=== PATIENT | male | born 1955 | race Two or more races ===

== ENCOUNTER 2024-12-15 02:45 | Inpatient (IN) | payer OTHER ==
[~2024-12-15] VITALS: Ht 167.6 cm; Wt 81.8 kg
[2024-12-15 03:40] LABS: GLUCOMETER DEV NAME(LOC) ERT.6; GLUCOSE,POINT OF CARE 106 MG/DL (70-110)
[2024-12-15] MEDS ORDERED: ACETAMINOPHEN 325 MG TABLET PO PRN (04:00)
[2024-12-15 04:09] LABS: BASOPHILS % (AUTO) 0.6 % (0.0-2.0); EOSINOPHILS % (AUTO) 4.5 % (1.0-6.0); HEMOGLOBIN 12.1 g/dL (13.5-17.5); LYMPHOCYTES # (AUTO) 2.8 K/uL (1.0-4.8); LYMPHOCYTES % (AUTO) 38.4 % (22.0-44.0); MEAN CORPUSCULAR HEMOGLOBIN 31.8 pg (26.0-34.0); MEAN CORPUSCULAR HGB CONC 34.5 G/dL (31.0-37.0); MEAN CORPUSCULAR VOLUME 92 fL (80-100); MONOCYTES # (AUTO) 0.5 K/uL (0.1-1.0); MONOCYTES % (AUTO) 6.4 % (2.0-9.0); NEUTROPHILS # (AUTO) 3.7 K/uL (1.8-7.7); NEUTROPHILS % (AUTO) 50.1 % (40.0-70.0); PLATELET COUNT (AUTO) 170 K/uL (150-450); RED CELL DISTRIBUTION WIDTH 13.4 % (11.5-14.5); WHITE BLOOD COUNT (AUTO) 7.3 K/uL (4.5-11.0)
[2024-12-15 04:33] LABS: ANION GAP 8 mmol/L (8-16); CALCIUM, TOTAL 9.8 mg/dL (8.8-10.5); CARBON DIOXIDE 27 mmol/L (22-29); CHLORIDE 106 mmol/L (98-107); CREATININE 1.69 mg/dL (0.60-1.30); GLOMERULAR FILTR. RATE CALC 40 mL/min (>60); GLUCOSE,RANDOM 111 mg/dL (70-110); POTASSIUM 4.4 mmol/L (3.5-5.1); SODIUM SERUM 141 mmol/L (136-145); UREA NITROGEN, BLOOD 26 mg/dL (7-18)
[2024-12-15 04:42] LABS: ALANINE AMINOTRANSFERASE 21 U/L (12-78); ALBUMIN 3.5 g/dL (3.4-5.0); ALKALINE PHOSPHATASE 101 U/L (46-116); ASPARTATE AMINOTRANSFERASE 26 U/L (15-37); BILIRUBIN,TOTAL 0.8 mg/dL (0.1-1.0); CREATINE KINASE, TOTAL ONLY 20 U/L (39-308); TROPONIN I-HIGH SENSITIVITY 5 ng/L (<76)
[2024-12-15 04:44] LABS: ALCOHOL, BLOOD (SERUM) < 3 mg/dL (0-10); B-TYPE NATRIURETIC PEPTIDE 12 pg/mL (0-100)
[2024-12-15 06:36] LABS: COVID AG,FIA SOURCE NASAL SWAB
[2024-12-15 07:08] LABS: INFLUENZA TYPE A NEGATIVE FOR TYPE A (NEGATIVE); INFLUENZA TYPE B NEGATIVE FOR TYPE B (NEGATIVE); SARS-COV2 (COVID) ANTIGEN,FIA Negative (Negative)
[2024-12-15] MEDS: HEPARIN SODIUM,PORCINE 5,000 UNITS/ML VIAL SQ SCH (07:37)
[2024-12-15 08:02] LABS: APPEARANCE,URINE CLEAR (CLEAR); BILIRUBIN,URINE NEGATIVE (NEGATIVE); COLOR,URINE LIGHT YELLOW (YELLOW); GLUCOSE, URINE (UA) NEGATIVE (NEGATIVE); KETONES,URINE NEGATIVE (NEGATIVE); LEUKOCYTE ESTERASE ,URINE NEGATIVE (NEGATIVE); NITRATE,URINE NEGATIVE (NEGATIVE); OCCULT BLOOD,URINE LARGE (NEGATIVE); PH,URINE 5.5 (5.0-8.0); PH,URINE DRUG SCREEN 5.5 (5.0-8.0); PROTEIN,URINE 30-70 mg/dL (NEGATIVE); SPECIFIC GRAVITIY, URINE 1.011 (1.003-1.030); UROBILINOGEN,URINE <=1.0 mg/dL (<=1.0)
[2024-12-15 08:10] LABS: ALCOHOL, URINE DRUG SCREEN NEGATIVE (NEGATIVE); AMPHET/METH SCREEN,URINE POSITIVE (NEGATIVE); BARBITURATE SCREEN, URINE NEGATIVE (NEGATIVE); BENZODIAZEPINES SCREEN,URINE NEGATIVE (NEGATIVE); CANNABINOID SCREEN,URINE NEGATIVE (NEGATIVE); COCAINE SCREEN,URINE NEGATIVE (NEGATIVE); METHADONE SCREEN, URINE NEGATIVE (NEGATIVE); OPIATE SCREEN,URINE NEGATIVE (NEGATIVE); PHENCYCLIDINE SCREEN,URINE NEGATIVE (NEGATIVE)
[2024-12-15 08:24] LABS: BACTERIA,URINE None Seen /HPF (None Seen); SQUAMOUS EPITHELIAL CELL,UR Few /LPF (None Seen); WBC,URINE None Seen /HPF (0-5)
[2024-12-15] MEDS: FAMOTIDINE 20 MG TABLET PO SCH (08:26)
[2024-12-15] MEDS: DOCUSATE SODIUM 100 MG CAPSULE PO SCH (08:26)
[2024-12-15 09:30] VITALS: BP 141/84; PULSE 75; RESP 18; TEMP 98; O2SAT 100
[2024-12-15 19:41] VITALS: BP 141/82; PULSE 82; RESP 18; TEMP 98.6; O2SAT 96
[2024-12-15] MEDS: CALCIUM CARBONATE 500 MG CHEWABLE TABLET CHEW PRN (23:19)
[2024-12-16 04:56] VITALS: BP 144/91; PULSE 88; RESP 18; TEMP 98.7; O2SAT 98
[2024-12-16 08:02] VITALS: BP 172/97; PULSE 81; RESP 18; TEMP 98.3; O2SAT 100
[2024-12-16 08:28] VITALS: BP 134/87; PULSE 87; RESP 18; TEMP 98.8; O2SAT 98
== END 2024-12-16 15:40 | DRG 897 ==
LOC: EMS 03:05 → EDH 03:47 → 6S 09:05
PROVIDERS: ADMIT Internal Medicine; ATTEND Internal Medicine
DX: F10.939 Alcohol use, unspecified with withdrawal, unspecified (principal); F15.10 Other stimulant abuse, uncomplicated; E11.9 Type 2 diabetes mellitus without complications; Z20.822 Contact with and (suspected) exposure to COVID-19
CPT/HCPCS: 71045; 80048; 80076; 80307; 81001; 82550; 82962; 83735; 83880; 84484; 85025; 87804; 93005; 99285; G0480; J1644; 36415-L1; 36415-TC